=== PATIENT | female | born 1975 | race Caucasian/White ===

== ENCOUNTER 2022-06-05 10:13 | Outpatient (REF) | payer BC, SELFPAY ==
[2022-06-05 12:45] LABS: Unsaturated Iron Binding 139 ug/dL
[2022-06-05 12:48] LABS: Iron 134 mcg/dL (30-160); Percent Iron Saturation 49 % (15-50); Total Iron Binding Capacity 273 mcg/dL (228-428)
[2022-06-05 13:03] LABS: Folate 12.4 ng/mL (> or = 4.0); TSH reflex Free T4 1.23 uIU/mL (0.32-4.0); Vitamin B12 306 pg/mL (200-900); Vitamin D 25-OH Total 18.4 ng/mL (>30)
== END 2022-06-05 10:14 | disposition home or self-care (01) ==
LOC: HO.HMGCLDS 10:13
PROVIDERS: PCP Internal Medicine; Visit Provider Internal Medicine
DX: R53.83 Other fatigue (principal)
CPT/HCPCS: 36415; 82306; 82607; 82746; 83540; 84443